=== PATIENT | male | born 1980 | race African-American/Black ===

== ENCOUNTER 2020-05-23 21:45 | Emergency (ER) | payer SELFPAY ==
[~2020-05-23] VITALS: Ht 195.6 cm; Wt 89.8 kg
[2020-05-23] MEDS ORDERED: DEXAMETHASONE SOD PHOS 10 MG/1 ML VIAL IM ONE (22:00)
[2020-05-23] MEDS ORDERED: PENICILLIN G BENZATHINE LA 1.2 MU TBX IM STA (22:00)
[2020-05-23 22:39] VITALS: BP 124/87
== END 2020-05-23 22:42 | disposition home or self-care (01) ==
LOC: ER 22:10
DX: J02.0 Streptococcal pharyngitis (principal)
CPT/HCPCS: 99282; J0561; J1100

== ENCOUNTER 2020-05-31 17:06 | Emergency (ER) | payer SELFPAY ==
[~2020-05-31] VITALS: Ht 195.6 cm; Wt 89.8 kg
== END 2020-05-31 17:39 | disposition home or self-care (01) ==
LOC: ER 17:15
DX: H92.02 Otalgia, left ear (principal); J30.9 Allergic rhinitis, unspecified
CPT/HCPCS: 99282

== ENCOUNTER 2020-06-03 12:19 | Emergency (ER) | payer SELFPAY ==
[~2020-06-03] VITALS: Ht 195.6 cm; Wt 89.4 kg
[2020-06-03] MEDS ORDERED: ZITHROMAX250 MG PO (14:37)
[2020-06-03] MEDS ORDERED: PREDNISONE20 MG PO (14:40)
[2020-06-03 15:16] VITALS: BP 144/92
== END 2020-06-03 15:19 | disposition home or self-care (01) ==
LOC: FSED 12:35
DX: J02.9 Acute pharyngitis, unspecified (principal); J30.9 Allergic rhinitis, unspecified; F17.210 Nicotine dependence, cigarettes, uncomplicated
CPT/HCPCS: 83518; 86308; 99283